=== PATIENT | female | born 1970 ===

== ENCOUNTER 2017-04-28 14:10 | Inpatient (IN) ==
--- NOTE | 2017-04-28 14:55 | Emergency Department Note ---
Skinny Flower Brooke, am scribing for, and in the presence of, Nam Henry MD 14:43. Elaine Flower Phillip K, MD, personally performed the services described in this documentation, ascribed by Patricia Babb in my presence, and it is both accurate and complete 455 . Arrival - Arrival Chief Complaint: Abdominal / Flank Pain ED Nursing Triage Note: pt was transfered the clinic for ruq abd pain and gall stones Mode of Arrival: Stretcher Limitations: No Limitations Source: Patient, EMS, RN Notes Reviewed Time Seen by Provider: 04/28/17 14:36 - History of Present Illness HPI Narrative: Patient is a 46 year old female brought into the ED by EMS, from [facility], for further evaluation of gallstones. Patient says she developed RUQ abdominal pain on Wednesday. She says she has also been nauseated since Wednesday. Patient vomited on Wednesday but says she has been "taking medication" so she has not vomited anymore. Patient says [facility] told her she had fever but her temperature during triage was 96.9. Patient says she had a CT scan done on Wednesday and a sonogram done today. She has PMHx of NIDDM. Onset (ago): day(s) (5) Date of Last Menstrual Period: hyst Allergies/Adverse Reactions: Allergies Allergy/AdvReac Type Severity Reaction Status Date / Time No Known Allergies Allergy Unverified 04/28/17 14:15 Review of System - Review of System 12 point system: reviewed and no additional remarkable complaints except as stated - Review of System Constitutional: Present: fever Respiratory: Absent: respiratory distress Gastrointestinal: Present: abdominal pain (RUQ), nausea, vomiting Skin: Absent: rash Medical,Surgical,& Family Hx - Medical History Endocrine: History of: Diabetes Mellitus (NIDDM) - Social History Smoking Status: Never smoker Frequency of Alcohol Use: None Type of Drug Use: None Exam Vital Signs: Vital Signs Temperature 96.9 F L 04/28/17 14:10 Pulse Rate 69 04/28/17 14:10 Respiratory Rate 18 04/28/17 14:10 Blood Pressure 127/61 04/28/17 14:10 O2 Sat by Pulse Oximetry 93 L 04/28/17 14:10 - General General appearance: alert, in no apparent distress - Head Head exam: Present: atraumatic, normocephalic - Eye Eye exam: Present: normal appearance, PERRL, EOMI - ENT ENT exam: Present: normal exam - Neck Neck exam: Present: normal inspection - Chest Chest inspection: Present: normal inspection, symmetric chest wall rise - Respiratory Respiratory exam: Present: normal lung sounds bilaterally - Cardiovascular Cardiovascular exam: Present: regular rate, normal rhythm, normal heart sounds - Abdominal Exam Abdominal exam: Present: soft, tenderness (Tenderness to the RUQ to direct palpation.), normal bowel sounds. Absent: distention - Extremities Exam Extremities exam: Present: normal inspection - Back Exam Back exam: Present: normal inspection - Neurological Exam Neurological exam: Present: alert, oriented X3 - Psychiatric Psychiatric exam: Present: normal affect, normal mood - Skin Skin exam: Present: warm, dry, intact, normal color Course Course Narrative: Patient discussed with Dr. Flood Results - Labs Lab Results: I have reviewed the patients labs (Labs reviewed from [facility].) - Diagnostic Findings Procedure: Ultrasound: report reviewed by me (Sonogram at [facility] revealed gallstones.) Disposition Clinical Impression: Cholelithiasis and cholecystitis without obstruction Case discussed with: patient Disposition: Still a Patient Condition: Guarded Additional Instructions: Admit to Dr. Flood
--- NOTE | 2017-04-28 15:32 | General Surg History&Physical ---
<Nicole Markham - Last Filed: 04/28/17 15:29> Assessment and Plan - Time spent with patient Time spent with patient: Greater than 30 minutes (1) Diabetes Status: Acute Assessment and plan: 46-year-old female with history of diabetes and hypertension admitted by Dr. Flood the third from the ED as a transfer from the [facility] with acute cholecystitis with cholelithiasis. Patient has normal LFTs and amylase and lipase. She does have an elevated white count of 15.9. Patient does have some bilateral atelectasis with no history of cough or fevers. Patient is n.p.o. at this time. She will be taken to the operating room by Dr. Remigio FLORES today for laparoscopic cholecystectomy. We will go ahead and admit the patient, start antibiotics and IV fluids, sliding scale insulin for diabetes management and restart her hypertensive medications. Dr. Remigio FLORES will see and examine patient with further recommendations to follow. Current Visit: Yes (2) Hypertension Status: Acute Current Visit: Yes (3) Bilateral atelectasis Status: Acute Current Visit: Yes History of Present Illness Chief complaint: Abdominal pain History of present illness: Ms. Mendez is a 46 year old female with history of diabetes and hypertension transferred from the [facility] with abdominal pain. Patient states she has been hurting since Wednesday all across her abdomen and it was associated with nausea and decreased appetite. Patient states she went to the [facility] and they treated her for her virus and sent her home. She states she went back on Wednesday and they performed a CT scan that showed gallbladder distention, bilateral atelectasis, and a questionable right lower lobe pneumonia. They had her come back this morning for a gallbladder ultrasound that showed distention with stones. Patient is continued to have right upper quadrant and epigastric abdominal pain that radiates through to the back. She has not had nausea but she has not eaten anything as well. She denies fevers, chills, chest pain, shortness of breath, cough, constipation or diarrhea, or lower extremity edema. Chest x-ray done this morning showing elevation of the right hemidiaphragm and a questionable left lower lobe pneumonia. Patient's white count is elevated at 15.9 and her amylase and lipase are normal. Chest x-ray read in the ED by Dr. Henry just shows atelectasis and no pneumonia. After discussion with Dr. Henry the ED physician and Dr. Flood the third surgeon, it was agreed patient will be admitted for further evaluation and treatment. Patient's medicines will be reconciled and she is a full code. Allergies Allergy/AdvReac Type Severity Reaction Status Date / Time No Known Allergies Allergy Unverified 04/28/17 14:15 Medical,Surgical,& Family Hx - Medical History Cardio: History of: Hypertension Endocrine: History of: Diabetes Mellitus (NIDDM) - Surgical History Reproductive Surgeries: Surgical HX of;: Section, Tubal Ligation - Family History Family History: Reports;: Family Diabetes, Family Heart Disease - Social History Smoking Status: Never smoker Frequency of Alcohol Use: None Type of Drug Use: None Marital Status: Lives With:: Spouse Functional capacity: independent ambulation Exam - Constitutional Vitals: Period Temp Pulse Resp BP Sys/Sena Pulse Ox Last 24 Hr 96.9 F-96.9 F 67-69 18-18 127-127/61-61 93 Exam: Constitutional System: No distress. No tremulousness. Head: Normocephalic, atraumatic. Ears, Nose and Throat System: No evidence of Otitis or Mastoiditis. No epistaxis or discharge Eyes System: Pupils equal, round, and reactive. Extraocular muscles intact. Neck: Supple, without adenopathy, No jugular venous distention. No thyromegaly, neck mass, or prior surgery apparent. Respiratory System: Chest clear to auscultation. Cardiovascular System: Heart with regular rate and rhythm. No murmur. GI System: Abdomen soft, tender to palpation right upper quadrant in epigastric region. Normo active bowel sounds present. Musculoskeletal System: limbs with no pedal edema. Full distal pulses. Neurological System: No discernable sensory deficit. No aphasia Psychiatric System: Conversation is rational Review of systems: Complete 10 system review of systems was obtained and pertinent positives and negatives per HPI Quality Measures - VTE Contraindication to Pharmacological VTE Prophylaxis: High Risk of Bleeding Results - Labs Lab Results: I have reviewed the past 24 hour labs Labs: Significant labs from the [facility] show elevated WBCs at 15.9, amylase and lipase okay - Impressions EKG is pending - Diagnostic Findings Procedure: Chest x-ray: report reviewed by me (Chest x-ray showing a questionable left lower lobe pneumonia with bilateral atelectasis), CT Abdomen and Pelvis: report reviewed by me (CT done on 04/26/2017 at [facility] shows gallbladder distention, bilateral atelectasis, and a questionable right lower lobe pneumonia), Ultrasound: report reviewed by me (Gallbladder ultrasound done at [facility] shows gallbladder distention with stones) <Remigio,Bill III. - Last Filed: 04/28/17 17:56> Assessment and Plan (1) Cholelithiasis and cholecystitis without obstruction Status: Acute Assessment and plan: The patient appears to have acute cholecystitis and cholelithiasis. I discussed admission for IV antibiotics and IV fluids and laparoscopic cholecystectomy. We discussed the procedure and risks including conversion to open procedure, bile duct injury, bile leaks, injury to liver or bowel, etc. She understands these risks and wishes to proceed. Current Visit: Yes History of Present Illness History of present illness: Ms. Mendez is a 46 year old female Exam - Constitutional Vitals: Period Temp Pulse Resp BP Sys/Sena Pulse Ox Last 24 Hr 96.9 F-96.9 F 67-69 18-18 127-127/61-61 93
[2017-04-28] MEDS ORDERED: ALBUTEROL/IPRATROPIUM 3 ML NEB RESP TX PRN (15:39)
[2017-04-28] MEDS ORDERED: BISACODYL 5 MG TABLET PO PRN (15:39)
[2017-04-28] MEDS ORDERED: KETOROLAC 15 MG/1 ML VIAL IV PRN (15:39)
[2017-04-28] MEDS ORDERED: ACETAMINOPHEN 325 MG TABLET PO PRN ×2 (15:39→15:41)
--- NOTE | 2017-04-28 15:42 | EKG Report ---
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
[2017-04-28] MEDS ORDERED: DEXTROSE 50% 25 GM/50 ML VIAL IV PRN ×2 (15:43→16:20)
[2017-04-28] MEDS ORDERED: GLUCAGON 1 MG VIAL IM PRN ×2 (15:43→16:20)
[2017-04-28] MEDS ORDERED: LIDOCAINE 1%/EPI INJ 20 ML VIAL ONE (16:20)
[2017-04-28] MEDS ORDERED: TISSUE ADHESIVE 1 EACH APPLICATOR TOP ONE (16:20)
[2017-04-28] MEDS ORDERED: BUPIVACAINE 0.5% /EPI 10 ML VIAL ONE (16:20)
[2017-04-28] MEDS ORDERED: BUPIVACAINE 0.25% 50 ML VIAL ONE (16:21)
[2017-04-28] MEDS: LACTATED RINGERS 1,000 ML IV SCH (20:46)
[2017-04-28] MEDS: PIPERACILLIN/TAZOBACTAM 3,375 MG in SODIUM CHLORIDE 0.9% 100 ML IV SCH (21:16)
[2017-04-28] MEDS: FERROUS SULFATE 325 MG TABLET PO SCH (21:27)
[2017-04-28] MEDS: LISINOPRIL 20 MG TABLET PO SCH (21:27)
[2017-04-28] MEDS: MULTIVITAMIN (CENTRUM) TABLET PO SCH (21:28)
[2017-04-28] MEDS: CARVEDILOL 12.5 MG TABLET PO SCH (21:28)
[2017-04-28] MEDS: ASPIRIN EC 81 MG TABLET PO SCH (21:28)
[2017-04-28] MEDS: CHLORTHALIDONE 25 MG TABLET PO SCH (21:28)
[2017-04-28] MEDS: SIMVASTATIN 20 MG TABLET PO SCH (21:28)
[2017-04-28] MEDS: INSULIN LISPRO 100 UNIT/ML SUBCUT SCH (21:32)
[2017-04-28] MEDS ORDERED: DEXTROSE 50% 25 GM/50 ML SYRINGE IV PRN (22:30)
[2017-04-29] MEDS: LACTATED RINGERS 1,000 ML IV SCH ×5 (00:47→23:46)
[2017-04-29 05:39] LABS: Basophils % 0.1 % (0.0-0.8); Eosinophils # 0.1 10*3/uL (0.0-0.87); Eosinophils % 0.7 % (0.00-10.9); Hematocrit 26.7 VOL% (35.7-47.0); Hemoglobin 8.8 GM/DL (12.0-16.0); Immature Granulocytes % 0.4 %; Immature Granulocytes Absolute 0.04 #; Lymphocytes # 1.9 10*3/uL (1.4-4.0); Lymphocytes % 20.9 % (21.3-54.2); Mean Corpuscular Hemoglobin 29 PG (27-34); Mean Corpuscular Volume 87.5 FL (87-102); Mean Platelet Volume 9.9 FL (9.6-12.0); Monocytes # 0.6 10*3/uL (0.11-0.8); Monocytes % 6.8 % (1.7-12.7); Neutrophils # 6.4 10*3/uL (1.4-7.4); Neutrophils % 71.1 % (38.7-73.9); Platelet Count 313 T/CUMM (130-400); Red Blood Count 3.05 MC/CUMM (3.8-5.5); Red Cell Distribution Width 13.2 % (9.3-17.3); White Blood Count 9.1 T/CUMM (4-12)
[2017-04-29] MEDS: PIPERACILLIN/TAZOBACTAM 3,375 MG in SODIUM CHLORIDE 0.9% 100 ML IV SCH ×3 (06:10→21:56)
[2017-04-29 06:20] LABS: Albumin 2.4 G/DL (3.4-5.0); Bilirubin,Total 1.7 MG/DL (0.2-1.0); Calcium 8.5 MG/DL (8.5-10.1); Osmolality,Calculated 287.7 MOS/KG (273-304); Potassium 4.1 MMOL/L (3.5-5.1)
[2017-04-29] MEDS: HYDROmorphone 2 MG/1 ML VIAL IV PRN ×3 (06:35→22:28)
[2017-04-29] MEDS ORDERED: BUPIVACAINE 0.25% 50 ML VIAL ONE (06:43)
[2017-04-29] MEDS ORDERED: LIDOCAINE 1%/EPI INJ 20 ML VIAL ONE (06:43)
[2017-04-29] MEDS ORDERED: TISSUE ADHESIVE 1 EACH APPLICATOR TOP ONE (06:43)
[2017-04-29] MEDS: INSULIN LISPRO 100 UNIT/ML SUBCUT SCH ×2 (07:39→17:30)
[2017-04-29] MEDS: SIMVASTATIN 20 MG TABLET PO SCH (09:00)
[2017-04-29] MEDS: CHLORTHALIDONE 25 MG TABLET PO SCH (09:00)
[2017-04-29] MEDS: PANTOPRAZOLE 40 MG TABLET PO SCH (09:00)
[2017-04-29] MEDS: ASPIRIN EC 81 MG TABLET PO SCH (09:00)
[2017-04-29] MEDS: MULTIVITAMIN (CENTRUM) TABLET PO SCH (09:00)
[2017-04-29] MEDS: FERROUS SULFATE 325 MG TABLET PO SCH (09:00)
[2017-04-29] MEDS: CARVEDILOL 12.5 MG TABLET PO SCH ×2 (09:00→21:56)
[2017-04-29] MEDS: LISINOPRIL 20 MG TABLET PO SCH (12:26)
[2017-04-29] MEDS ORDERED: ROCURONIUM 100 MG/10 ML VIAL IV ONE (12:32)
[2017-04-29] MEDS ORDERED: GLYCOPYRROLATE 0.4 MG/2 ML VIAL ONE (12:32)
[2017-04-29] MEDS ORDERED: PROPOFOL 200 MG/20 ML VIAL IV ONE (12:32)
[2017-04-29] MEDS ORDERED: LIDOCAINE 2% 5 ML VIAL ONE (12:32)
[2017-04-29] MEDS ORDERED: PROMETHAZINE 25 MG/1 ML VIAL ONE (12:32)
[2017-04-29] MEDS ORDERED: ONDANSETRON 4 MG/2 ML VIAL ONE (12:32)
[2017-04-29] MEDS ORDERED: NEOSTIGMINE 10 MG/10 ML VIAL ONE (12:32)
--- NOTE | 2017-04-29 14:08 | Operative Note ---
Date of procedure: 04/29/17 Pre-op diagnosis: Acute cholecystitis Post-op diagnosis: other (Same with choledocholithiasis and severe mason- cholecystitis) Procedure: Laparoscopic cholecystectomy with intraoperative cholangiogram (22) Findings and technique: After informed consent was obtained patient was brought the operating room and placed in supine position. After successful induction of general anesthesia the patient's abdomen was prepped and draped in usual sterile fashion. Local anesthesia was infiltrated and a transverse incision made just above the umbilicus where an open technique was used in the peritoneal cavity were extensive adhesions were noted at this location above her previous old lower midline scar. Monge cannula was inserted and pneumoperitoneum was established. Dissection was carried out to free up the omentum from the anterior abdominal wall and I then encountered the free space in the right upper quadrant. Ports were placed in the upper abdomen under camera vision and the gallbladder visualized. It was initially not visible and had adherent omentum and transverse colon to the body and fundus of the gallbladder. This was all gently teased free from the gallbladder had focal areas of gangrene anteriorly along the body and fundus. The gallbladder had to be decompressed to be grasped and this was done with a suction cannula. This was lifted upwards over the liver. Dissection was carried down over the neck of the gallbladder where careful tedious dissection was carried out of the gallbladder neck exposing the cystic artery as it branched over the surface of the gallbladder. I freed up the back wall of the neck of the gallbladder and created a window with careful blunt and sharp dissection and maintained good hemostasis. The most intense inflammation pain at the at the very distal end of the gallbladder neck where it folded over on itself and I dissected this free and straightened it out but it was most inflamed at the cystic duct. I milked some stones out of the cystic duct and shot a cholangiogram through the neck of the gallbladder and this showed normal ductal anatomy but did show multiple common bile duct stones as well as an obstructing stone at the distal common bile duct. The cystic duct was doubly clipped and divided right at the gallbladder neck and in chromic Endoloop then applied over this as well. The gallbladder was dissected free from the liver bed leaving a portion of the back wall of the gallbladder attached to the liver bed to prevent bleeding. The gallbladder and gallstones were placed in an Endo Catch bag all stones were removed both with a large suction cannula and the Endo Catch bag. The bed of dissection was inspected for bleeding and no bleeding or bile leakage noted. This was inspected for 5-10 minutes. A 10 mm DEVI drain was placed in this location and brought out through 1 of the 5 mm port sites. Gas was evacuated from the abdomen and the fascial defect at the umbilicus closed with running 0 Monocryl suture. The skin incisions were closed with skin clips and the drain sutured the skin this was a much more difficult procedure than usual with the severe inflammation and amson-cholecystitis and difficult anatomy all adding to the complexity of the case along with her morbid obesity. This essentially doubled the usual expected operative time. Surgeon / Physician: Alex Flood III. Results - Labs CBC & BMP: 04/29/17 05:02 04/29/17 05:02 Discharge Plan - Discharge Medications No Action Acetaminophen 325 mg PO Q6H PRN PRN Reason: Fever, Headache, Mild Pain Chlorthalidone [Chlorthalidone] 25 mg PO DAILY Saxagliptin HCl [Onglyza] 2.5 mg PO DAILY Pioglitazone HCl [Pioglitazone HCl] 30 mg PO DAILY Lisinopril [Lisinopril] 40 mg PO DAILY Ibuprofen [Ibuprofen] 800 mg PO Q8H PRN PRN Reason: Pain Glyburide/Metformin HCl [Glyburide-Metformin 5-500 mg] 2 each PO BID Ferrous Sulfate 325 mg PO DAILY Aspirin EC Tab 81 mg PO DAILY Simvastatin [Simvastatin] 20 mg PO QPM Multivitamin with Iron [Multivitamins with Iron] 1 each PO DAILY Carvedilol [Carvedilol] 12.5 mg PO BID - Follow Up or Referral - Forms/Instructions
--- NOTE | 2017-04-29 14:16 | Fluoroscopy Report ---
Exam: [place] cholangiogram in surgery Date: 04/29/2017 12:00 AM Comparison: None Indication: Laparoscopic cholecystectomy Technique:[Fluoroscopy time of 56 seconds documented. 62 C-arm films were submitted for review.] Findings: Nonionic contrast material injected in the cystic duct. Contrast in the gallbladder which contains multiple stones. Filling defect in the CBD with no contrast noted beyond this finding. Additional filling defects are noted in the common hepatic duct extending to the level of the origin of the right and left lobe bile ducts. Minimal dilatation of the bile ducts. Impression: Cholelithiasis. Choledocholithiasis with obstruction of the distal common bile duct. Minimal dilatation of the bowel ducts. Additional filling defects in the common hepatic duct which are probably related to additional stones rather than air bubbles. PROCEDURE INTERPRETED AT [facility] DEPARTMENT OF RADIOLOGY Final Report Signed by: Dr. Tina Ozuna
--- NOTE | 2017-04-29 14:22 | Anesthesia Post-Op ---
Anesthesia Post OP - Post Ansesthetic Evaluation Patient seen in post op: Yes Resp: within normal limits CV: within normal limits Mental: within normal limits Temp: within normal limits [id number]: within normal limits Nausea and Vomiting: within normal limits Pain: within normal limits
[2017-04-29] MEDS ORDERED: fentaNYL 100 MCG/2 ML VIAL ONE (14:38)
[2017-04-29] MEDS ORDERED: LACTATED RINGERS 1,000 ML IV ONE (14:38)
[2017-04-29] MEDS ORDERED: SEVOFLURANE 1 UNIT/15 MINUTE INH ONE (14:38)
[2017-04-29] MEDS ORDERED: MIDAZOLAM 2 MG/2 ML VIAL ONE (14:38)
--- NOTE | 2017-04-29 15:13 | Gastrointestinal Consult Note ---
Assessment and Plan (1) Cholelithiasis and cholecystitis without obstruction Status: Acute Assessment and plan: 04/29-5 day history of upper abdominal pain with reported nausea and vomiting. Findings at outside facility on CT of abdomen with gallbladder distention, US with findings of cholelithiasis without ductal dilatation. Patient is post laparoscopic cholecystectomy with intraoperative cholangiogram report noted as below. Elevated LFTs as noted below. Tentative plans to proceed with ERCP on tomorrow if patient remains stable. Plan an addendum to follow by Dr. Garnica. Current Visit: Yes History of Present Illness Chief complaint: Abdominal pain, choledocholithiasis with cholecystitis History of present illness: Ms. Mendez is a 46 year old female who presented to the emergency room on yesterday from [facility], with complaints of right upper quadrant abdominal pain 5 days. Patient is unable to provide history due to under the lingering effects of anesthesia at this time. Information is obtained from chart review and discussion with nursing staff. Patient presented to the [facility] with complaints of abdominal pain 5 days with nausea and vomiting. Patient also had some complaints of a decreased appetite and at that time they felt she possibly had a viral infection and initially sent her home. At that time she did have a noncontrasted CT scan done that only showed a distended gallbladder. She reported back to [facility] on yesterday with the continued complaints and had an ultrasound of the abdomen that showed gallbladder distention with cholelithiasis. Patient was then transferred to our facility for further evaluation. On admission she was found to have leukocytosis with WBCs at 15,000. Her amylase and lipase levels were within normal limits. No LFTs noted from [facility] however on admission to our facility she was found to have a bilirubin of 1.7, AST of 1198, ALT of 539, and alkaline phosphatase of 309. Her H&H was also noted 05/15. She was seen in consultation by Dr. Flood and elected to proceed with laparoscopic cholecystectomy on today. Intraoperative cholangiogram report shows cholelithiasis with choledocholithiasis with obstruction of the distal common bile duct and minimal dilation of bile ducts as well as filling defects in the common hepatic. Home Medications Medication Instructions Recorded Confirmed Type Acetaminophen 325 mg PO Q6H PRN 04/28/17 04/29/17 History Aspirin EC Tab 81 mg PO DAILY 04/28/17 04/29/17 History Carvedilol [Carvedilol] 12.5 mg PO BID 04/28/17 04/29/17 History Chlorthalidone [Chlorthalidone] 25 mg PO DAILY 04/28/17 04/29/17 History Ferrous Sulfate 325 mg PO DAILY 04/28/17 04/29/17 History Glyburide/Metformin HCl 2 each PO BID 04/28/17 04/29/17 History [Glyburide-Metformin 5-500 mg] Ibuprofen [Ibuprofen] 800 mg PO Q8H PRN 04/28/17 04/29/17 History Lisinopril [Lisinopril] 40 mg PO DAILY 04/28/17 04/29/17 History Multivitamin with Iron 1 each PO DAILY 04/28/17 04/29/17 History [Multivitamins with Iron] Pioglitazone HCl [Pioglitazone HCl] 30 mg PO DAILY 04/28/17 04/29/17 History Saxagliptin HCl [Onglyza] 2.5 mg PO DAILY 04/28/17 04/29/17 History Simvastatin [Simvastatin] 20 mg PO QPM 04/28/17 04/29/17 History Allergies Allergy/AdvReac Type Severity Reaction Status Date / Time No Known Allergies Allergy Unverified 04/28/17 14:15 Medical,Surgical,& Family Hx - Medical History Cardio: History of: Hypertension Neurology: No history of: Seizures Endocrine: History of: Diabetes Mellitus (NIDDM) - Surgical History HEENT Surgeries: Surgical HX of: Eye Surgery (bilateral cataract surgery) Reproductive Surgeries: Surgical HX of;: Section, Tubal Ligation - Family History Family History: Reports;: Family Diabetes, Family Heart Disease, Family Hypertension () - Social History Smoking Status: Never smoker Frequency of Alcohol Use: None Type of Drug Use: None ROS unobtainable: other Exam - Constitutional Vitals: Period Temp Pulse Resp BP Sys/Sena Pulse Ox Last 24 Hr 97.0 F-97.9 F 53-73 16-19 98-157/52-74 93-99 General appearance: normal weight, no acute distress - Head Head exam: Present: normal inspection, normocephalic - Eye Eye exam: Present: other (lids and conjunctiva unremarkable). Absent: scleral icterus - ENT ENT exam: Present: normal exam, normal oropharynx - Neck Neck exam: Present: normal inspection - Respiratory Respiratory exam: Present: clear to auscultation bilaterally. Absent: rales, rhonchi, wheezes - Cardiovascular Cardiovascular exam: Present: regular rate and rhythm. Absent: diastolic murmur , JVD, systolic murmur - GI/Abdominal GI/Abdominal exam: Present: normal bowel sounds, tenderness, soft. Absent: ascites, distended, mass, Montes's sign - Extremities Exam Extremities exam: Present: normal inspection, full ROM - Back Exam Back exam: Present: normal inspection - Neurological Exam Neurological exam: Present: altered - Psychiatric Psychiatric exam: Present: normal affect, normal mood - Skin Skin exam: Present: normal color, warm, dry Results - Labs CBC & BMP: 04/29/17 05:02 04/29/17 05:02 Lab Results: I have reviewed the past 24 hour labs - Diagnostic Findings Procedure: CT Abdomen and Pelvis: report reviewed by me (outside facility) Quality Measures - VTE Contraindication to Pharmacological VTE Prophylaxis: High Risk of Bleeding
--- NOTE | 2017-04-29 17:34 | Event Note ---
She looks good postoperatively. We had seen normal liver function tests are paperwork from [facility] and I did not even know new lab work to been ordered. This shows elevated liver test. This was confirmed with cholangiography showing a stone in her distal common bile duct. I discussed her case with Dr. Garnica and also discussed the findings and plan with the patient.
[2017-04-30] MEDS: HYDROmorphone 2 MG/1 ML VIAL IV PRN ×3 (03:09→16:54)
[2017-04-30] MEDS: PIPERACILLIN/TAZOBACTAM 3,375 MG in SODIUM CHLORIDE 0.9% 100 ML IV SCH ×3 (04:40→20:18)
[2017-04-30] MEDS: ONDANSETRON 4 MG/2 ML VIAL IV PRN ×2 (04:51→20:19)
[2017-04-30 05:41] LABS: Basophils % 0.3 % (0.0-0.8); Eosinophils # 0.1 10*3/uL (0.0-0.87); Eosinophils % 1.2 % (0.00-10.9); Hematocrit 25.6 VOL% (35.7-47.0); Hemoglobin 8.3 GM/DL (12.0-16.0); Immature Granulocytes % 0.5 %; Immature Granulocytes Absolute 0.05 #; Lymphocytes # 1.8 10*3/uL (1.4-4.0); Lymphocytes % 18.9 % (21.3-54.2); Mean Corpuscular HGB Conc 32.4 GM/DL (32-36); Mean Corpuscular Hemoglobin 29 PG (27-34); Mean Corpuscular Volume 88.3 FL (87-102); Mean Platelet Volume 9.7 FL (9.6-12.0); Monocytes # 0.7 10*3/uL (0.11-0.8); Monocytes % 6.9 % (1.7-12.7); Neutrophils # 6.9 10*3/uL (1.4-7.4); Neutrophils % 72.2 % (38.7-73.9); Platelet Count 336 T/CUMM (130-400); Red Cell Distribution Width 13.4 % (9.3-17.3); White Blood Count 9.6 T/CUMM (4-12)
[2017-04-30 05:58] LABS: PT Patient Result 10.5 SECS
--- NOTE | 2017-04-30 07:02 | Event Note ---
She feels well. He states that the pain that she had preoperatively is much improved. There is no bile in her DEVI drain. Her vital signs are stable. She is for ERCP today.
[2017-04-30] MEDS: INSULIN LISPRO 100 UNIT/ML SUBCUT SCH ×2 (07:46→17:10)
[2017-04-30] MEDS: CARVEDILOL 12.5 MG TABLET PO SCH ×2 (09:00→20:22)
--- NOTE | 2017-04-30 14:40 | Discharge Summary ---
Hospital Course - Hospital Course Hospital Course: 46-year-old female with history of diabetes and hypertension was admitted by Dr. Remigio FLORES as a transfer from the [facility] on 04/28/2017 with acute cholecystitis with cholelithiasis. Patient had normal LFTs and amylase and lipase on [facility] paperwork. She was admitted, started on IV antibiotics, pain and nausea control. She was taken to the operating room on 04/29/2017 for laparoscopic cholecystectomy with intraoperative cholangiogram where he found choledocholithiasis and severe. Cholecystitis. Patient had elevated LFTs at this time. Dr. Garnica from GI was consulted and he performed an ERCP on 04/30/2017. He performed a sphincterotomy with balloon stone extraction. Patient is tolerating a diet and her pain is controlled. She can be discharged home with a one-week follow-up with Dr. Remigio FLORES. Complete discharge instructions were given. Care coordination, chart review, and completed discharge paperwork took approximately 35 minutes. - Time spent with patient Time with patient DS: Greater than 30 minutes Diagnosis - Discharge Diagnosis (1) Diabetes Status: Acute (2) Hypertension Status: Acute (3) Bilateral atelectasis Status: Acute Specialty Discharge - Follow Up or Referrals Follow up with: Alex Flood III., MD [Physician] - 05/06/17 3:15 pm Discharge Plan - Discharge Data Disposition: Disch To Home/Self Care Condition at Discharge: Stable Discharge Diet: diabetic diet Activity: no lifting Hygiene: may shower Driving: other (No driving if taking pain medications) Contact your physician if you experience:: fever over 101, Nausea/Vomiting Wound / Dressing Care Instructions: Okay to shower daily with mild soap and water, pat dry, okay to leave open to the air - Discharge Medications New HYDROcodone/ACETAMIN 7.5-325 [[place] 7.5-325] 1 tablet PO Q4H PRN #30 tablet PRN Reason: Pain Moderate (4-7) Continue Acetaminophen 325 mg PO Q6H PRN PRN Reason: Fever, Headache, Mild Pain Chlorthalidone 25 mg PO DAILY Saxagliptin HCl [Onglyza] 2.5 mg PO DAILY Pioglitazone HCl 30 mg PO DAILY Lisinopril 40 mg PO DAILY Ibuprofen 800 mg PO Q8H PRN PRN Reason: Pain Glyburide/Metformin HCl [Glyburide-Metformin 5-500 mg] 2 each PO BID Ferrous Sulfate 325 mg PO DAILY Aspirin EC Tab 81 mg PO DAILY Simvastatin 20 mg PO QPM Multivitamin with Iron [Multivitamins with Iron] 1 each PO DAILY Carvedilol 12.5 mg PO BID - Follow Up or Referral Follow Up: Alex Flood III., MD [Physician] - 05/06/17 3:15 pm - Forms/Instructions Exam - Constitutional Vitals: Period Temp Pulse Resp BP Sys/Sena Pulse Ox Last 24 Hr 96.2 F-98.5 F 54-82 12-20 109-172/52-064 95-100 Discharge Results Procedures and tests throughout hospitalization: Pending Orders 04/30/17 15:23 FL fluoroscopy <1hr Routine Labs on day of discharge: Labs from last 24 hours 04/30/17 04/30/17 04/30/17 10:47 06:55 05:29 WBC RBC Hgb Hct MCV MCH MCHC RDW Plt Count MPV Neut % (Auto) Lymph % (Auto) [facility] % (Auto) Eos % (Auto) Baso % (Auto) Neut # (Auto) Lymph # (Auto) [facility] # (Auto) Eos # (Auto) Baso # (Auto) Immature Gran % Nucleated RBC % Immature Gran # Nucleated RBCs # Immature Plt Fraction INR 1.0 PT Patient/Control Mix 10.5 POC Glucose 197 H 211 H 04/30/17 04/29/17 04/29/17 05:29 20:03 16:05 WBC 9.6 RBC 2.90 L Hgb 8.3 L Hct 25.6 L MCV 88.3 MCH 29 MCHC 32.4 RDW 13.4 Plt Count 336 MPV 9.7 Neut % (Auto) 72.2 Lymph % (Auto) 18.9 L [facility] % (Auto) 6.9 Eos % (Auto) 1.2 Baso % (Auto) 0.3 Neut # (Auto) 6.9 Lymph # (Auto) 1.8 [facility] # (Auto) 0.7 Eos # (Auto) 0.1 Baso # (Auto) 0.0 Immature Gran % 0.5 Nucleated RBC % 0.0 Immature Gran # 0.05 Nucleated RBCs # 0.00 Immature Plt Fraction 0.0 INR PT Patient/Control Mix POC Glucose 186 H 197 H DS: Provider Date of admission: 04/28/17 15:39 Primary care physician: Hiren Hemphill MD Attending physician on admission: Alex Flood III., Consults: 04/28/17 15:28 Consult to Anesthesiology [CONS] Routine Consulting Provider: Reason for Anesthesiology: Pre-op Clearance 04/29/17 14:19 Consult to Physician [CONS] Routine Comment: ercp Consulting Provider: Osito Garnica Consulting Provider Notified: Yes When should Consulting Provider be notified: Now Consult Notification Comment: Debo Lentz came and saw pt but said Dr Garnica would be by later to see pt. Discharging clinician: LEXIE Stroud Expected date of discharge: 04/30/17
[2017-04-30] MEDS ORDERED: PROPOFOL 200 MG/20 ML VIAL IV ONE (15:15)
[2017-04-30] MEDS ORDERED: LIDOCAINE 1% 5 ML VIAL ONE (15:15)
--- NOTE | 2017-04-30 15:15 | History and Physical Update ---
History and Physical Update - History and Physical H&P was reviewed, the patient examined and there: are no changes in the patients condition since last H&P was completed. - Physical Exam Mental Status: alert and oriented Heart: regular rate and rhythm Lung: clear to auscultation Abdomen: within normal limits Vitals: within normal limits
--- NOTE | 2017-04-30 15:50 | Operative Note ---
Date of procedure: 04/30/17 Pre-op diagnosis: Choledocholithiasis Post-op diagnosis: same Procedure: Procedure: Endoscopic retrograde cholangiopancreatography with common bile duct sphincterotomy and stones removal with balloon Brief clinical abstract: Patient is a 46-year-old female symptomatic gallstones who had laparoscopic cholecystectomy yesterday. She was found to have choledocholithiasis on intraoperative cholangiogram. Procedure findings: After informed consent was obtained, patient was placed in the prone position. Diagnostic video duodenoscope was inserted into the upper esophagus in blind fashion with no resistance encountered. Esophageal mucosa appeared normal. Stomach was examined including retroflexed view of the cardia and fundus with no other abnormalities noted. The pyloric channel, duodenal bulb, second and third portion of the duodenum including the appearance of the ampulla were normal. Sphincterotome was used and initially pancreatogram obtained. Head, neck, and distal body of the pancreatic duct were opacified with no abnormality seen. The endoscope was repositioned. Common bile duct was then opacified and deeply cannulated. Biliary tree was filled with contrast. Right and left intrahepatic systems were mildly dilated. Common bile duct and common hepatic duct were dilated to approximately 11-12 mm maximally. Several filling defects were visible under fluoroscopy. An over 1 cm diameter common bile duct sphincterotomy was then performed over a 0.035 inch guidewire located in the common bile duct. The sphincterotome was then removed and occlusion balloon was advanced over the wire into the proximal common hepatic duct. This was inflated to 12 mm diameter and dragged distally over the wire with 4 separate passes made. a total of 3 stones which were somewhat lior white in color were noted in them. A 12 mm balloon passed through the sphincterotomy opening with animal resistance. An occlusion cholangiogram was obtained afterwards with no other filling defects seen. There was some air in the biliary tree. Excellent drainage of bile and contrast was noted through the sphincterotomy opening. The endoscope was removed. She appeared to tolerate the procedure well. Impression: #1 choledocholithiasis-status post endoscopic removal #2 normal partial pancreatogram #3 normal EGD Recommendations: Could discharge this afternoon from my standpoint if asymptomatic after procedure with no nausea or abdominal pain. Anesthesia: MAC Surgeon / Physician: Osito Garnica Estimated blood loss: none Specimens: none sent Condition: stable Disposition: post procedure unit Results - Labs CBC & BMP: 04/30/17 05:29 04/29/17 05:02 Discharge Plan - Discharge Data Disposition: Disch To Home/Self Care - Discharge Medications New HYDROcodone/ACETAMIN 7.5-325 [[place] 7.5-325] 1 tablet PO Q4H PRN #30 tablet PRN Reason: Pain Moderate (4-7) Continue Acetaminophen 325 mg PO Q6H PRN PRN Reason: Fever, Headache, Mild Pain Chlorthalidone 25 mg PO DAILY Saxagliptin HCl [Onglyza] 2.5 mg PO DAILY Pioglitazone HCl 30 mg PO DAILY Lisinopril 40 mg PO DAILY Ibuprofen 800 mg PO Q8H PRN PRN Reason: Pain Glyburide/Metformin HCl [Glyburide-Metformin 5-500 mg] 2 each PO BID Ferrous Sulfate 325 mg PO DAILY Aspirin EC Tab 81 mg PO DAILY Simvastatin 20 mg PO QPM Multivitamin with Iron [Multivitamins with Iron] 1 each PO DAILY Carvedilol 12.5 mg PO BID - Follow Up or Referral Follow Up: Alex Flood III., MD [Physician] - 05/06/17 3:15 pm - Forms/Instructions
--- NOTE | 2017-04-30 15:58 | Anesthesia Post-Op ---
Anesthesia Post OP - Post Ansesthetic Evaluation Patient seen in post op: Yes Resp: within normal limits CV: within normal limits Mental: within normal limits Temp: within normal limits [id number]: within normal limits Nausea and Vomiting: within normal limits Pain: within normal limits
[2017-04-30] MEDS: LACTATED RINGERS 1,000 ML IV SCH ×2 (16:40→17:07)
--- NOTE | 2017-04-30 16:40 | Fluoroscopy Report ---
Exam: FL ERCP w sphincterotomy Date: 04/30/2017 3:23 PM Comparison: Operative cholangiogram 04/29/2017 Indication: Choledocholithiasis, elevated liver function tests Technique:[Fluoroscopy time is 6 minutes 34 seconds documented. 25 cc of contrast injected.. 14 films obtained.] Findings: Minimal contrast injected into the main pancreatic duct. Small filling defects are identified with nonfilling of the duct in the tail of the pancreas. Contrast was injected into the minimally dilated common bile ducts. Filling defects noted. Sphincterotomy performed with insertion of a balloon catheter with stone extraction. Limited evaluation of the duct on the final film. Only minimal contrast in the duodenum. Impression: Choledocholithiasis with stone extraction. Limited evaluation of bile ducts on the final films. Filling defects in the main pancreatic duct which may be related air bubbles, etc. Incomplete filling of the duct. PROCEDURE INTERPRETED AT [facility] DEPARTMENT OF RADIOLOGY Final Report Signed by: Dr. Tina Ozuna
--- NOTE | 2017-04-30 16:46 | Event Note ---
Patient alert and comfortable without nausea after ERCP. Abdomen is soft and nondistended with no significant tenderness. She appears stable after ERCP with no sign of pancreatitis or other complication. I will sign off. Please call if needed.
[2017-04-30] MEDS: LISINOPRIL 20 MG TABLET PO SCH (16:55)
[2017-04-30] MEDS: FERROUS SULFATE 325 MG TABLET PO SCH (16:57)
[2017-04-30] MEDS: CHLORTHALIDONE 25 MG TABLET PO SCH (16:58)
[2017-04-30] MEDS: MULTIVITAMIN (CENTRUM) TABLET PO SCH (16:59)
[2017-04-30] MEDS: ASPIRIN EC 81 MG TABLET PO SCH (17:00)
[2017-04-30] MEDS: PANTOPRAZOLE 40 MG TABLET PO SCH (17:01)
[2017-04-30] MEDS: SIMVASTATIN 20 MG TABLET PO SCH (17:02)
[2017-05-01] MEDS: LACTATED RINGERS 1,000 ML IV SCH ×2 (02:00→10:22)
[2017-05-01] MEDS: PIPERACILLIN/TAZOBACTAM 3,375 MG in SODIUM CHLORIDE 0.9% 100 ML IV SCH (05:20)
[2017-05-01] MEDS: INSULIN LISPRO 100 UNIT/ML SUBCUT SCH (07:52)
[2017-05-01 07:56] VITALS: BP 137/73
[2017-05-01] MEDS: ASPIRIN EC 81 MG TABLET PO SCH (08:48)
[2017-05-01] MEDS: MULTIVITAMIN (CENTRUM) TABLET PO SCH (08:48)
[2017-05-01] MEDS: SIMVASTATIN 20 MG TABLET PO SCH (08:48)
[2017-05-01] MEDS: CHLORTHALIDONE 25 MG TABLET PO SCH (08:48)
[2017-05-01] MEDS: LISINOPRIL 20 MG TABLET PO SCH (08:48)
[2017-05-01] MEDS: FERROUS SULFATE 325 MG TABLET PO SCH (08:48)
[2017-05-01] MEDS: PANTOPRAZOLE 40 MG TABLET PO SCH (08:49)
[2017-05-01] MEDS: CARVEDILOL 12.5 MG TABLET PO SCH (08:50)
--- NOTE | 2017-05-01 09:07 | Event Note ---
05/01/2017. Patient status post laparoscopic cholecystectomy and ERCP with sphincterotomy. She is doing fairly well there is a moderate amount of DEVI drainage present at this point will go ahead and get that out I think it is not very much and minimal. She did only have a clear liquid diet this morning which seem to be tolerating but will put her on some soft food see how she tolerates that. We will go ahead and get some stat labs, see where we stand on her at this point be sure things are fairly stable for let her go.
[2017-05-01 09:38] LABS: Basophils % 0.5 % (0.0-0.8); Eosinophils # 0.1 10*3/uL (0.0-0.87); Eosinophils % 1.6 % (0.00-10.9); Hematocrit 26.7 VOL% (35.7-47.0); Hemoglobin 8.7 GM/DL (12.0-16.0); Immature Granulocytes % 0.5 %; Immature Granulocytes Absolute 0.04 #; Lymphocytes # 2.5 10*3/uL (1.4-4.0); Mean Corpuscular HGB Conc 32.6 GM/DL (32-36); Mean Corpuscular Hemoglobin 29 PG (27-34); Mean Corpuscular Volume 87.8 FL (87-102); Mean Platelet Volume 9.4 FL (9.6-12.0); Monocytes # 0.7 10*3/uL (0.11-0.8); Monocytes % 7.6 % (1.7-12.7); Neutrophils # 5.2 10*3/uL (1.4-7.4); Neutrophils % 60.8 % (38.7-73.9); Platelet Count 357 T/CUMM (130-400); Red Blood Count 3.04 MC/CUMM (3.8-5.5); Red Cell Distribution Width 13.2 % (9.3-17.3); White Blood Count 8.5 T/CUMM (4-12)
[2017-05-01 10:05] LABS: Albumin 2.2 G/DL (3.4-5.0); Bilirubin,Total 0.9 MG/DL (0.2-1.0); Calcium 8.9 MG/DL (8.5-10.1); Osmolality,Calculated 280.4 MOS/KG (273-304); Potassium 3.5 MMOL/L (3.5-5.1); Total Protein 6.5 G/DL (6.4-8.3)
--- NOTE | 2017-05-03 13:31 | Pathology Report from [facility] ---
[facility] [place] ACCESSION # : [id number] PATIENT NAME : Heaven Jiang ORDERING DR : VIK KLEIN III, MD CLINICAL HX: Acute cholecystitis - Cholelithiasis POST-OP DX: Same SPECIMEN INFO: Gallbladder GROSS DESCRIPTION: The specimen is received in formalin labeled with the patients name and consists of an opened gallbladder measuring 8.5 x 4.5 cm. The serosa is erythematous and ulcerated. The wall averages 0.3 cm in thickness. The mucosa is erythematous and ulcerated and focally hemorrhagic. The lumen contains multiple [id number] stones and stone fragments collectively measuring 6.0 x 7.0 cm and range in size from 0.3 cm up to 1.1 cm. Satin Finisher sections submitted in one cassette. DIAGNOSIS FOR HEAVEN JIANG: GALLBLADDER, CHOLECYSTECTOMY: Acute and chronic necrotizing cholecystitis. Cholesterolosis. Cholelithiasis. COLLECTED DATE: 04/29/2017 [facility] [place] REPORT DATE: 04/30/2017 ELECTRONICALLY SIGNED BY: Jefry Subramanian M.D. 04/30/2017 - 10:54:21 [facility]
== END 2017-05-01 11:45 | disposition home or self-care (01) | DRG 418 ==
LOC: EDUNIT# → N.ED 14:10 → N.EDINP 15:39 → N.3E 19:01
PROVIDERS: ADMIT Surgery; ATTEND Surgery
PROC: LAPCHOL (2017-04-29 12:32)
PROC: ERCPWSP (ICD-10-PCS; 2017-04-30 12:35)